=== PATIENT | male | born 1940 | race Caucasian/White ===

== ENCOUNTER 2020-04-05 05:06 | Day surgery (SDC) | payer BC ==
[2020-04-05] MEDS ORDERED: MOXIFLOXACIN HCL (OPHTH) 1 DROP DROPS ONE (10:28)
[2020-04-05] MEDS ORDERED: TROP1%/CYCLOPEN 1%/PHENYL 2.5% DROPS ONE (10:29)
[2020-04-05] MEDS ORDERED: PROPARACAINE 0.5% OPHTH SOL 15 ML BTTL RIGHT_EYE ONE ×2 (10:30→10:58)
[2020-04-05] MEDS ORDERED: LIDOCAINE 1% 2 ML VIAL INJ ONE ×2 (10:30→10:58)
[2020-04-05] MEDS ORDERED: DEXAMETHASONE 0.1% OPHTH SOL 1 DROP RIGHT_EYE ONE ×2 (10:31→10:58)
[2020-04-05] MEDS ORDERED: TOBRAMYCIN SULF 0.3 % OPHT SOL 1 DROP RIGHT_EYE ONE ×2 (10:31→10:58)
[2020-04-05] MEDS ORDERED: MOXIFLOXACIN HCL (OPHTH) 1 DROP DROPS RIGHT_EYE ONE ×2 (10:31→10:58)
[2020-04-05] MEDS ORDERED: BRIMONIDINE 0.2% OPHTH DROPS RIGHT_EYE ONE ×2 (10:31→10:58)
[2020-04-05] MEDS ORDERED: MIDAZOLAM INJ 2 MG/2 ML VIAL ONE (10:58)
== END 2020-04-05 11:59 | disposition home or self-care (01) ==
LOC: AMB 05:06
PROVIDERS: ATTEND Ophthalmology
DX: H25.013 Cortical age-related cataract, bilateral (principal); I10 Essential (primary) hypertension; Z88.0 Allergy status to penicillin; Z79.899 Other long term (current) drug therapy
CPT/HCPCS: 00142; 66984; J2250

== ENCOUNTER 2020-04-19 06:53 | Day surgery (SDC) | payer BC ==
[2020-04-19] MEDS ORDERED: TROP1%/CYCLOPEN 1%/PHENYL 2.5% DROPS OPHTH ONE (06:54)
[2020-04-19] MEDS ORDERED: MIDAZOLAM INJ 2 MG/2 ML VIAL ONE (08:15)
[2020-04-19] MEDS ORDERED: PROPARACAINE 0.5% OPHTH SOL 15 ML BTTL RIGHT_EYE ONE ×2 (09:56→10:07)
[2020-04-19] MEDS ORDERED: TOBRAMYCIN SULF 0.3 % OPHT SOL 1 DROP RIGHT_EYE ONE ×2 (09:57→10:07)
[2020-04-19] MEDS ORDERED: DEXAMETHASONE 0.1% OPHTH SOL 1 DROP RIGHT_EYE ONE ×2 (09:57→10:07)
[2020-04-19] MEDS ORDERED: LIDOCAINE 1% 2 ML VIAL INJ ONE ×2 (09:57→10:07)
[2020-04-19] MEDS ORDERED: MOXIFLOXACIN HCL (OPHTH) 1 DROP DROPS RIGHT_EYE ONE ×2 (09:57→10:07)
[2020-04-19] MEDS ORDERED: BRIMONIDINE 0.2% OPHTH DROPS RIGHT_EYE ONE ×2 (09:58→10:07)
== END 2020-04-19 11:10 | disposition home or self-care (01) ==
LOC: AMB 06:53
PROVIDERS: ATTEND Ophthalmology
DX: H25.011 Cortical age-related cataract, right eye (principal); I10 Essential (primary) hypertension; Z88.0 Allergy status to penicillin; Z79.899 Other long term (current) drug therapy
CPT/HCPCS: 00142; 66984; J2250